=== PATIENT | male | born 1980 | race Caucasian/White ===

== ENCOUNTER 2017-04-26 18:08 | Emergency (ER) | payer MEDICAID ==
[~2017-04-26] VITALS: Ht 185.4 cm; Wt 96.5 kg
[2017-04-26 18:18] VITALS: BP 108/72
== END 2017-04-26 20:27 | disposition home or self-care (01) ==
LOC: ED 20:00
DX: J20.8 Acute bronchitis due to other specified organisms (principal); B96.89 Other specified bacterial agents as the cause of diseases classified elsewhere; J44.9 Chronic obstructive pulmonary disease, unspecified
CPT/HCPCS: 71020; 93005; 99284; J7512